=== PATIENT | male | born 1955 | race Caucasian/White ===

== ENCOUNTER 2016-11-08 17:50 | Observation (INO) | payer BC ==
[~2016-11-08] VITALS: Ht 177.8 cm; Wt 96.6 kg
--- NOTE | ~2016-11-08 | CON ---
PATIENT'S NAME: BA PABON [facility] AGE: 61 Y [address] ROOM: [place] [address] LOCATION: GPCU ADMIT DATE: 11/08/2016 Consultation DISCHARGE DATE: 11/09/2016 FAMILY PHYSICIAN: Imelda Holguin MD ATTENDING PHYSICIAN: Imelda Holguin REFERRING PHYSICIAN: Juaquin Lyle MD. REASON FOR CONSULT: Chest pain. HISTORY OF PRESENT ILLNESS: Mr. Pabon is a pleasant 61-year-old male, with history of coronary artery disease status post percutaneous intervention of right coronary artery in [address]-elevation NM. The patient is physically very active. He stated that about five days ago, he lifted and carried a lot of weight; and on Friday, he developed, pain on the right side of chest. The pain was mild in intensity and sharp with no radiation. Pain is worse at rest and on deep breathing. The patient stated that on Friday, he came to Dr. Clemons's office and got an EKG done and in view of continued pain, he came to emergency room last night. The patient denies any shortness of breath. No history of cough or expectoration. No history of fever. The patient stated that presently that he has pain of pleasant 1/10 in intensity. He feels that is probably due to a muscle pull. REVIEW OF SYSTEMS: The patient denied any recent change in vision. No history of nausea or vomiting, diarrhea or constipation. No history of fever. No history of palpitations. No history of significant weight gain or weight loss. No history of syncope. PAST MEDICAL HISTORY: Coronary artery disease and hyperlipidemia. FAMILY HISTORY: The patient stated that his father had coronary artery disease and several of his ankles have coronary artery disease. SOCIAL HISTORY: The patient is and lives with his . He is a construction project administrator. CURRENT MEDICATIONS: Include aspirin 325 mg daily. Atorvastatin 80 mg daily. Nitroglycerin p.r.n. and Plavix. His last echocardiogram in November 2015, showed ejection fraction of 60% to 65%. PATIENT'S NAME: BA PABON [facility] AGE: 61 Y [address] ROOM: [place] [address] LOCATION: GPCU ADMIT DATE: 11/08/2016 Consultation DISCHARGE DATE: 11/09/2016 FAMILY PHYSICIAN: Imelda Holguin MD ATTENDING PHYSICIAN: Imelda Holguin LABORATORY DATA: Sodium 140, potassium 4.1, chloride 108, CO2 23, BUN 16, and creatinine 1.2, and magnesium 2.3. Total cholesterol 106. Triglycerides 184. HDL of 30. LDL 40. CPK 230, CK-MB 5.1, 4.7, 4.6, and 3.9, and 3.5. Serial cardiac troponins were less than 0.04. White blood cell count 7.3, hemoglobin 14.2, platelet count 236. His EKG showed sinus bradycardia at 59 beats per minute with no acute ST-T wave changes. PHYSICAL EXAMINATION: VITAL SIGNS: Pulse rate is 58 beats per minute, blood pressure 137/83, respiratory rate 16, temperature 98, and weight 96.6 kg. HEENT: On examination, his head is atraumatic and normocephalic. His tongue is moist. NECK: No significant jugular venous distention is present. CARDIOVASCULAR: S1, S2 are audible. Regular in rate and rhythm with no audible murmur. RESPIRATORY: Bilateral vesicular breath sounds are audible with no adventitious sounds. The patient has mild pain on pressing on the right side in the intercostal spaces. ABDOMEN: Soft and nontender. Bowel sounds are present. EXTREMITIES: Showed no significant pedal edema. NEUROLOGIC: The patient is awake, alert, and oriented. No focal neurological deficits are noted. ASSESSMENT AND PLAN: 1. Chest pain. The patient's chest pain is not suggestive of angina. His pain is worse at rest and he feels improvement during activity and is also worse on taking deep breaths, suggesting pleuritic nature of the pain. His serial cardiac enzymes showed mild elevation in CK-MB with normal troponins. His EKGs did not show any significant acute changes. His chest pain is not suggestive of angina. However, in view of previous history of coronary artery disease, stress test was recommended. However, the patient does not want stress test at the present time. He has followup appointment with Dr. Hickman on Friday. 2. Coronary artery disease. We will continue medical therapy with aspirin, Plavix, and statin. The patient is not on beta blockers due to resting bradycardia. The plan of care was discussed with the patient and nursing. Thank you for allowing us in taking part in the care of this pleasant patient. Please call, if any further questions. PATIENT'S NAME: BA PABON [facility] AGE: 61 Y [address] ROOM: [id number] [place] [id number] [facility] ADMIT DATE: 11/08/2016 Consultation DISCHARGE DATE: 11/09/2016 FAMILY PHYSICIAN: Imelda Holguin MD ATTENDING PHYSICIAN: Imelda Holguin MD ANTONIA TIDWELL/bobl /[id number] d: 11/09/16 1547 t: 11/28/16 1732, CONSULTATION REPORT
--- NOTE | ~2016-11-08 | ER ---
PATIENT'S NAME: BA PALMA [facility] AGE: 61 Y [address] ROOM: [place] [address] LOCATION: GPCU ADMIT DATE: 11/08/2016 ER/Outpatient Report DISCHARGE DATE: FAMILY PHYSICIAN: Imelda Holguin MD ATTENDING PHYSICIAN: Imelda Holguin Time of Arrival: 1750 hours. Time of Exam: 1800 hours. IDENTIFICATION: A 61-year-old male. CHIEF COMPLAINT: Chest pain. HISTORY OF PRESENT ILLNESS: The patient is a 61-year-old male who has had chest pain off and on since Friday, but today it was associated with some dizziness. No nausea, no shortness of breath, and no other associated symptoms. Substernal pain, no radiation. At this time, his pain is 3/10 on the pain scale. ALLERGIES: CODEINE. CURRENT MEDICATIONS: 1. Plavix. 2. Aspirin. 3. Atorvastatin. MEDICAL PROBLEMS: Hyperlipidemia; coronary artery disease, status post ME and stents with in- stent stenosis in November of 2015; and hypertension. PRIOR SURGERY: Stent to RCA in November 2015, cholecystectomy, right knee arthroscopy, and right elbow surgery. FAMILY HISTORY: Father during CABG and father with hemochromatosis, brother with heart disease. SOCIAL HISTORY: The patient lives here in [place]. He is . The patient works in construction. Tobacco use, denies. Alcohol use, denies. Drug use, denies. PATIENT'S NAME: BA PALMA [facility] AGE: 61 Y [address] ROOM: [place] [address] LOCATION: GPCU ADMIT DATE: 11/08/2016 ER/Outpatient Report DISCHARGE DATE: FAMILY PHYSICIAN: Imelda Holguin MD ATTENDING PHYSICIAN: Imelda Holguin REVIEW OF SYSTEMS: All systems reviewed and negative other than what is noted in the HPI except after his initial visit here, he then complained that he felt a pop in his left knee last night when he got up. Otherwise, negative review of systems. PHYSICAL EXAMINATION: VITAL SIGNS: Height 5 feet 10 inches and weight 100.3 kg. Blood pressure 177/96, pulse 66, respirations 17, and saturations 98%. GENERAL: A 61-year-old male, in no acute distress. HEENT: Head: Normocephalic, atraumatic. Ears: TMs translucent, both ears. Nose: Mucosa pink, no lesions. Mouth: No lesions. Pharynx benign. NECK: Supple. No lymphadenopathy. No nuchal rigidity. LUNGS: Clear to auscultation. HEART: Regular rate and rhythm. No murmur, rub, or gallop. ABDOMEN: Bowel sounds present. Soft, nondistended. No hepatosplenomegaly. No palpable masses. Nontender. SKIN: [place], warm, and dry. No lesions or rashes noted. NEURO: The patient is alert and oriented x4. Cranial nerves 2 through 12 grossly intact. Motor strength 5/5 throughout. Sensation is intact to light touch. MUSCULOSKELETAL: No lower extremity edema. No calf tenderness. Left knee: Full range of motion. No deformities noted. No ligamentous laxity. No effusion is noted. Minimal tenderness to palpation just below the patella. EMERGENCY DEPARTMENT COURSE: A saline lock was initiated. Labs were drawn. EKG was obtained. At this time, the patient is not having any pain, so we are not giving any additional pain medicine at this time. EKG: Normal sinus rhythm at 64 beats per minute. No acute ST elevation or depression. Flattened T-wave in lead III. No significant change when compared to prior EKG in November of 2015. Repeat EKG at 1951 hours: Sinus bradycardia at 59 beats per minute. No acute ST elevation or depression and no acute changes are noted. Chest x-ray, 1 view, no acute process, pending Radiology over-read. Sodium 140, potassium 4.1, chloride 108, CO2 of 23, BUN 16, creatinine 1.2, and blood sugar 119. Liver enzymes normal. Magnesium 2.3. CPK 331, CK-MB 5.1, troponin I less than 0.040. Hemoglobin 14.2, hematocrit 41.2, platelets 236, and white count 7.3 with a normal differential. INR 0.97. 2-hour cardiac enzymes: CPK 289, CK-MB 4.7, and troponin I less than 0.040. IMPRESSION: Unstable angina. PLAN: 1. Discussed with Dr. Hickman, his physiotherapist's assistant. The patient will be admitted by primary care physician, Dr. Lyle with Dr. Hickman PATIENT'S NAME: BA PALMA [facility] AGE: 61 Y [address] ROOM: [facility] [place] [place], [place] [address] LOCATION: [facility] ADMIT DATE: 11/08/2016 ER/Outpatient Report DISCHARGE DATE: FAMILY PHYSICIAN: Imelda Holguin MD ATTENDING PHYSICIAN: Imelda Holguin providing consultation. 2. Hypertension. 3. History of hyperlipidemia. On exam with GI, the patient does have chest wall tenderness to palpation on the right side, which reproduces his symptoms. BRENT CHAMBERS MD CAR/modl /[id number] d: 11/09/16 0134 t: 11/10/16 0344, OUTPATIENT REPORT
--- NOTE | ~2016-11-08 | HP ---
PATIENT'S NAME: BA PALMA [facility] AGE: 61 Y [address] ROOM: [place] [address] LOCATION: GPCU ADMIT DATE: 11/08/2016 History & Physical DISCHARGE DATE: 11/09/2016 FAMILY PHYSICIAN: Imelda Holguin MD ATTENDING PHYSICIAN: Imelda Holguin DATE OF SERVICE: CHIEF COMPLAINT: Chest discomfort. HISTORY OF PRESENT ILLNESS: This is a 61-year-old white male with known coronary artery disease. He had non-STMI last year with stenting. He had acute restenosis of his stent and with further intervention on that day. He has been pain-free and doing well since that time. He relates he has had some chest discomfort over this last few days. Initially on Friday, he was a little bit of chest fullness. He was able to play golf and he did not have any trouble with this. He relates on the day of admission that he had a lightheaded, so that he should get checked out. Interestingly, on Friday of this week, today being Friday, he went to the cardiology office, but his patient observation assistant was out. Dr. Hickman is his usual patient observation assistant. He did see Dr. Bergeron. Dr. Bergeron did the EKG ordered was normal and recommended admission for further workup of his chest discomfort, the patient declined; however, on the night of admission since he felt a little lightheaded and dizzy, he felt he should be checked out. He was brought to the emergency room where he relates he was pain-free. They spoke with Dr. Hickman and recommended overnight observation with further evaluation in the morning. PAST MEDICAL HISTORY: Significant for hyperlipidemia, coronary artery disease with stenting as described above. CURRENT MEDICATIONS: Include Plavix, aspirin, and atorvastatin. ALLERGIES TO MEDICATIONS: codeine. PREVIOUS SURGERIES: Include stenting to RCA in November 2015, cholecystectomy, right knee arthroscopy, and right elbow surgery. FAMILY HISTORY: Significant for father who during CABG and father with PATIENT'S NAME: BA PALMA [facility] AGE: 61 Y [address] ROOM: [address] [address] LOCATION: GPCU ADMIT DATE: 11/08/2016 History & Physical DISCHARGE DATE: 11/09/2016 FAMILY PHYSICIAN: Imelda Holguin MD ATTENDING PHYSICIAN: Imelda Holguin hemochromatosis. Brother with heart disease. SOCIAL HISTORY: The patient lives in [place], he is , and he works in construction. He does not smoke, does not drink. He denies any illicit drug use. REVIEW OF SYSTEMS: No recent weight loss or weight gain. No fevers or chills. No shortness of breath. Chest discomfort as described above. No nausea or vomiting. Lightheadedness as described before. No musculoskeletal complaints. PHYSICAL EXAMINATION: GENERAL: He is awake, alert, and resting comfortably in bed. Pain is reported 0/10. HEENT: Unremarkable. NECK: Supple. No carotid bruits. LUNGS: Clear bilaterally. Slightly tender to palpation on the right chest wall. HEART: Regular rate and rhythm. ABDOMEN: Soft, nontender, nondistended. LABORATORY STUDIES: At the emergency room shows EKG, no change. Chest x-ray is normal. Chemistries are normal. Liver enzymes normal. Magnesium 2.3. Total CK 331, MB 5.1, troponin less than 0.040. Repeat 2 hour cardiac enzymes were lower than 1st set. IMPRESSION: 1. Chest discomfort, cardiac versus other. Plan at emergency room doctor, spoke with Dr. Hickman who recommended observation. The patient overnight is pain-free and feels well. I recommend further evaluation per the patient observation assistant. In light of his atypical chest discomfort in the past, NSTEMI and the NSTEMI, I urged that atypical symptoms needed to be treated with seriousness. Heme/Psych both agreed. 2. Hyperlipidemia, on atorvastatin. 3. Stenting, on Plavix. 4. History of hypertension, not on beta-toi or KIERRA. 5. Likely chest wall component to chest discomfort. Further orders based on the clinical course. CARLOS OWEN MD PATIENT'S NAME: BA PALMA [facility] AGE: 61 Y [address] ROOM: [place] [address] [facility] ADMIT DATE: 11/08/2016 History & Physical DISCHARGE DATE: 11/09/2016 FAMILY PHYSICIAN: Imelda Holguin MD ATTENDING PHYSICIAN: Imelda Holguin TLP/modl /[id number] D: [id number] T: [id number] HISTORY & PHYSICAL
[~2016-11-08 17:50] MED LIST: ASPIRIN325 MG PO; BRILINTA90 MG PO; LIPITOR80 MG PO; LOPRESSOR25 MG PO; NITROSTAT0.4 MG SL; PLAVIX75 MG PO; VASOTEC2.5 MG PO
[2016-11-08 18:30] LABS: BASOPHIL % 0.5 %; EOSINOPHIL # 0.1 K/uL (0.0-0.5); EOSINOPHIL % 1.6 %; HEMATOCRIT 41.2 % (37.0-53.0); HEMOGLOBIN 14.2 g/dL (11.0-16.0); IMMATURE GRANULOCYTE % 0.3 %; LYMPHOCYTE # 2.2 K/uL (0.8-4.0); LYMPHOCYTE % 30.6 %; MCH 30.1 pg (27.0-34.0); MCHC 34.5 gm/dL (32.0-36.5); MCV 87.5 fl (83.0-98.0); MONOCYTE # 0.4 K/uL (0.0-1.0); MONOCYTE % 5.6 %; MPV 9.2 fl (9.4-12.4); NEUTROPHIL # (ANC) 4.5 K/uL (1.4-9.0); NEUTROPHIL % 61.4 %; NRBC % 0 /100WBC (0-0.00); PLATELET COUNT 236 K/uL (150-450); RBC 4.71 M/uL (3.50-5.50); RDW-CV 12.4 % (11.9-14.6); WBC 7.3 K/uL (4.0-11.0)
[2016-11-08 18:44] LABS: INR - (THERAPEUTIC) 0.97 (0.92-1.07); PROTIME 10.2 SECONDS (9.8-11.4); PTT 26 SECONDS (25-32)
[2016-11-08 18:49] LABS: ALBUMIN 4.3 gm/dL (3.5-5.0); ALK PHOS 101 IU/L (33-138); ALT 23 IU/L (12-78); ANION GAP 13.1 (10.0-19.0); AST 23 IU/L (10-40); BLOOD UREA NITROGEN 16 mg/dL (6-24); CALCIUM 8.6 mg/dL (8.5-10.5); CHLORIDE 108 mMol/L (96-110); CO2 23 mMol/L (22-32); CPK 331 IU/L (35-332); CREATININE 1.2 mg/dL (0.6-1.3); ESTIMATED GFR (MDRD EQUATION) > 60; MAGNESIUM 2.3 mg/dL (1.8-2.6); POTASSIUM 4.1 mMol/L (3.7-5.1); SODIUM 140 mMol/L (135-145); TOTAL BILIRUBIN 0.6 mg/dL (0.0-1.5); TOTAL PROTEIN 7.2 g/dL (6.0-8.4)
[2016-11-08 20:24] LABS: CPK 289 IU/L (35-332)
--- NOTE | 2016-11-08 23:43 | NUR ---
Patient is a 61yo male admitted to PCU observation for chest pain by Dr. Lyle for Dr. Imelda Holguin. Patient came into the ER with chest pain which started Friday evening, but progressed to dizziness today. Patient states that he thought he had pulled some muscles in his chest. Patient has a history of MIx2 Stent x1, balloon x1, arthritis, GERD, and hypercholesteremia. Upon arrival to PCU patient was not having any chest pain. Vitals: 97.8 temp, 167/76-109, 56bpm, 100% on RA, 16 resp. Patient is having some pain with movement in his left knee which he says is new as of this week. The pain is sharp, stabbing but goes away when patient does not move his knee. Patient is up minimal assist. Dr. Hickman is consulted for the morning.
[2016-11-09 01:11] LABS: CPK 269 IU/L (35-332)
[2016-11-09 04:50] LABS: CPK 259 IU/L (35-332)
[2016-11-09 11:16] LABS: CPK 230 IU/L (35-332)
== END 2016-11-09 13:39 | disposition disaster alternative care site (69) ==
LOC: GMED 17:50 → GPCU 20:08
PROVIDERS: Emergency Medicine; ADMIT Family Medicine
DX: R07.89 Other chest pain (principal); I25.10 Atherosclerotic heart disease of native coronary artery without angina pectoris; E78.5 Hyperlipidemia, unspecified; Z88.5 Allergy status to narcotic agent; Z90.49 Acquired absence of other specified parts of digestive tract; Z79.899 Other long term (current) drug therapy; Z79.01 Long term (current) use of anticoagulants; Z98.890 Other specified postprocedural states
CPT/HCPCS: G0378; J7030

== ENCOUNTER → 2017-01-24 | Outpatient (CLI) | payer BC ==
--- NOTE | ~2017-01-24 | ESTC ---
Cardiac Perfusion Imaging Demographics Patient Name LOUIE Ware Gender Male Patient Number [id number] Race Visit Number [id number] [place] [id number] Room Number Accession Number [id number] Height 70 inches Date of 1955 Weight 220 pounds Ezio Dave MD Interpreting Marylou Watson MD Date of study 01/24/2017 Physician Supervising /HANNAH Baron NM Technologist [facility] JASMIN Ordering Physician Marylou Watson MD Stress mail technician Stress ECG Reading Summer Baron Nurse Ra Barron Physician JASMIN Dave RN Procedure Procedure Type: Nuclear Stress Test:Exercise, Cardiolite Stress Test Procedure Start time: 01/24/2017 00:00 Indications: Shortness of breath and History of CAD. Risk Factors The patient risk factors include:prior PCI on 11/24/2015;family history of premature CAD and prior GA . Conclusions Summary Cardiolite SPECT images demonstrate homogenous uptake of radioactive tracer. No evidence of inducible reversible defect and no evidence of underlying fixed defect. Normal TID ratio of 0.95 Gated images demonstrate normal left ventricular function without inducible wall motion abnormalities, LVEF is 56% Stress Protocols Resting ECG RSR without ST or T wave changes. Resting HR:58 bpm Resting BP:146/75 mmHg Pre-stress physical exam: Had been complaining of light headedness and dizziness. No complaints of chest pain. Stress Protocol:Exercise Peak HR:142 bpm HR response: Appropriate Peak BP:152/80 mmHg BP response: Appropriate Predicted HR: 158 bpm HR/BP product:01475 % of predicted HR: 90 Max exercise: 11.5 METS Test duration:10:30 min Reason for termination:Target heart rate Exercise effort:Excellent Perceived exertion:18 ECG Findings Sinus Tachycardia with 1mmHg ST depression 1mm lead II, III, AVF, V4, V5, V6 Arrhythmias None Symptoms Light headedness at peak exercise. Stress Interpretation The electrocardiographic portion of the stress test was positive for ischemia. Blood pressure response was normal, heart rate response was normal for exertion. The Newton Treadmill Score was +5. This corresponds to a low risk stress test. Stress supervision and interpretation provided by Gwen Wheeler APRN . Imaging Results Summed scores - Summed stress score: 0 - Summed rest score: 0 - Summed difference score: 0 Stress ejection Ejection fraction:56 % EDV :140 ml ESV :62 ml Stroke volume :78 ml LV mass :145 gr Imaging Protocols Rest Stress Isotope:Tc99m Sestamibi IV Isotope: Tc99m Sestamibi IV Isotope dose:15.3 mCi Isotope dose:47.5 mCi Date:01/24/2017 07:34 Date:01/24/2017 09:15 Technique: SPECT Technique: Gated Supine SPECT Supine Scan Time:45-60 minutes post Scan Time:45-60 minutes post injection injection Medical History Admission Data Admission date: 01/24/2017 Admission Time: 07:00 Hospital Status: Outpatient. Signatures dtt: Walter Hickman (cardio) dtd: 01/24/17 0000 Physician Self Edit
== END | disposition disaster alternative care site (69) ==
LOC: GRAD 01-20 07:15
DX: I25.10 Atherosclerotic heart disease of native coronary artery without angina pectoris (principal); R06.02 Shortness of breath
CPT/HCPCS: A9500